=== PATIENT | male | born 1975 | race Caucasian/White ===

== ENCOUNTER 2025-04-08 12:57 | Inpatient (IN) | payer OTHER ==
[~2025-04-08] VITALS: Ht 170.2 cm; Wt 99.7 kg
--- NOTE | 2025-04-08 13:50 | Physician Documentation ---
History of Present Illness ~ Chief Complaint: Bloody Stools Stated Complaint: BLOOD IN STOOL Time Seen by MD: 17:09 HPI 49-year-old male heavy drinker presents to the emergency department with a complaint of four episodes of dark bloody stool. Has been under a lot of stress due to situation with family crisis. Has had polyps in the past. Occasionally has epigastric discomfort. Medication Reconciliation Allergies: Coded Allergies: ibuprofen (Verified Allergy, Severe, VOMITTING, 04/08/25) Scheduled [Testoterone], 0.5 MG IV 2XWEEK, (Reported) Physical Exam Vital Signs: Temperature: 97.3, Source: Oral, Heart Rate: 118, Respiratory Rate: 18, BP: 152/84, Pulse Oximetry: 97, Weight: 99.700 Oxygen Flow Rate: 0 Progress Results/Orders Results/Orders Completed Orders - ДМИТРИЙ BAINS PAC CMP (04/08/25 13:10) Pantoprazole 40mg Iv (Protonix 40mg Iv) (04/08/25 14:37) Vital Signs 04/08/25 04/08/25 04/08/25 13:05 14:43 16:08 Temp 97.3 Pulse 118 91 Resp 18 12 20 B/P (MAP) 152/84 152/105 (121) Pulse Ox 97 O2 Flow Rate 0 Laboratory Tests Test 04/08/25 13:57 04/08/25 15:20 White Blood Count 10.0 10.8 Red Blood Count 6.11 H 5.54 Hemoglobin 18.3 *H 16.8 Hematocrit 52.1 H 48.0 Mean Corpuscular Volume 85.4 86.7 Mean Corpuscular Hemoglobin 30.0 30.3 Mean Corpuscular Hemoglobin Concent 35.1 35.0 Red Cell Distribution Width 13.7 13.7 Platelet Count 311 287 Mean Platelet Volume 7.3 L 7.3 L Neutrophils (%) (Auto) 65.7 Lymphocytes (%) (Auto) 26.3 Monocytes (%) (Auto) 7.1 Eosinophils (%) (Auto) 0.5 Basophils (%) (Auto) 0.4 Neutrophils # (Auto) 6.6 Lymphocytes # (Auto) 2.6 Monocytes # (Auto) 0.7 Eosinophils # (Auto) 0.0 Basophils # (Auto) 0.0 CBC Comment Prothrombin Time 10.7 INR International Normalized Ratio 1.0 Activated Partial Thromboplast Time 27 Coagulation Comments Sodium Level 138 Potassium Level 4.0 Chloride Level 104 Carbon Dioxide Level 26.5 Anion Gap 8 Blood Urea Nitrogen 9 Creatinine 1.33 H Estimated GFR/1.73 m2 58 BUN/Creatinine Ratio 6.8 L Glucose Level 117 H Calcium Level 8.4 L Total Bilirubin 1.9 H Aspartate Amino Transf (AST/SGOT) 25 Alanine Aminotransferase (ALT/SGPT) 26 Alkaline Phosphatase 78 Total Protein 7.1 Albumin 3.6 Globulin 3.5 Albumin/Globulin Ratio 1.0 L Chemistry Comments Hematology Comments Total Creatine Kinase 332 H Troponin I High Sensitivity 4 Pro-B-Type Natriuretic Peptide < 30 Lipase 36 Ethyl Alcohol Level < 10 Medical Decision Making Additional information obtaine: family Findings Medical screening exam completed in triage. Patient normotensive and pending laboratory review. He is mildly tachycardic. He awaits direct bed in the main emergency department for comprehensive workup. Diff Dx GI Bleed:Consideration: Include: Blood loss anemia, Carcinoma, Diverticulosis, Diverticulitis, Esophageal varicies, Esophagitis, Gastritis, Gastroenteritis, Inflammatory BD, Meckel's diverticulum Departure Impression: Primary Impression: Hematochezia Additional Impressions: GI bleed ANDER (acute kidney injury) Syncope Ground-level fall Closed head injury Concussion Condition: Guarded Referrals: NO PRIMARY CARE PROVIDER (PCP) Additional Comment Seen with PA/LEATHER STAMPER Date: Apr 08, 2025 Time: 17:10 This is an attending supervisory note for the resident of record. I have personally participated in care of this patient, has been present during critical and/or sousa portions of the patient's service, participated in the evaluation, and provided major portion of medical decision-making, independently interpreted imaging and laboratory studies and participated in disposition of this patient. This is a 49-year-old male who was seen in conjunction with the residents as above. 49-year-old male presented for evaluation of bloody stools starting today. No obvious trigger, trauma provocation. The stools are painless. He reports large quantity of bloody stools. Not accompanied by chest pain or difficulty breathing. He is a fairly heavy drinker and drinks at least 2 tall glasses of whiskey a day. She had a colonoscopy five years ago and was found to have a polyp. No follow- up. I was called to the bedside immediately because the patient got up, and experienced a syncopal event. He was pale, diaphoretic, he collapsed to the ground striking his head. He vomited and experienced a very large bloody bowel movement. It is grossly evident hematochezia. The patient eventually regained consciousness. He confirms the story as above. GENERAL: Awake, alert, oriented, GCS 15, no apparent distress, non-toxic appearing, answers questions, follows commands appropriately. HEENT: Atraumatic, normocephalic, pupils equal, extraocular muscles intact, sclerae anicteric, mucus membranes moist, oropharynx is clear, no stridor. NECK: supple, full active range of motion, trachea midline, no thyromegaly, no lymphadenopathy, no JVD. CARDIOVASCULAR: Tachycardic and regular rate/rhythm, no murmurs/gallops/rubs, Pulses are 2+ in all extremities and symmetric. Capillary refill less than 2 seconds. PULMONARY: Nonlabored, good air movement ,no respiratory distress, speaking in full sentences, clear to auscultation bilaterally, no wheezing, no ronchi, no rales, no accessory muscle use. GASTROINTESTINAL: Soft, non-tender, non-distended, normal active bowel sounds, no organomegaly, no pulsatile masses, no CVA tenderness. NEUROLOGIC: Lucid with normal mental status. Normal facial symmetry. Moves all extremities symmetrically and with purpose. No truncal ataxia. Speech is fluid without evidence of dysarthria or aphasia, no focal deficits appreciated. MUSCULOSKELETAL: There is full range of motion of all extremities. There is no joint pain or joint swelling or joint erythema. There is no muscle pain or tenderness or swelling. EXTREMITIES: warm, well-perfused, no cyanosis, no clubbing, no edema, no acute deformities. Skin: warm, dry, no rashes or lesions, no jaundice, no petechiae orpurpura. No ecchymosis. PSYCHIATRIC: Normal affect, normal insight, normal concentration. Focused exam: [No guarding or rebound. Rectal exam is completely on necessary given obvious hematochezia.] Hemodynamics reviewed. The patient is not febrile, tachycardic, responded well to fluids. No evidence of hypotension and narrow pulse pressure. It is important to note however, that his pulse pressure is narrowing in general but still remains about 30. Laboratory studies showed hemo concentration of 18.3, on repeat H and H is 16.8. No leukocytosis. Normal platelets. Coagulation panel was unremarkable. Chemistry shows ANDER. CK isn't significantly elevated. Lipase is normal. Troponins negative failure BNP is negative. Ethanol is negative. CT head was obtained because of the trauma and shows no acute intracranial abnormality. A CT of the abdomen and pelvis was obtained showing no acute findings. Diverticulosis without diverticulitis. Incidental finding of 2 cm right lung nodule. The patient will require admission to internal medicine service. Case was discussed with Dr. Bee. Signature Scribe Signature: No scribe Attestation: Date: Apr 08, 2025 Time: 17:15 This note accurately reflects clinical decisions, work performed by myself, DO NARA Piña THOMAS C PAC Apr 08, 2025 13:50 JEFF DESAI DO Apr 08, 2025 17:15
[2025-04-08 14:16] LABS: MEAN PLATELET VOLUME 7.3 FL (7.4-10.4); RED CELL DISTRIBUTION WIDTH 13.7 % (11.5-14.5)
[2025-04-08 14:27] LABS: CREATININE 1.33 MG/DL (0.60-1.10); TOTAL CARBON DIOXIDE 26.5 MMOL/L (24-32); eCRCL 64 ML/MIN; eGFR 58 ML/MIN
--- NOTE | 2025-04-08 14:40 | Physician Documentation ---
History of Present Illness CC: JEFF DESAI DO ~ Chief Complaint: Bloody Stools Stated Complaint: BLOOD IN STOOL Time Seen by MD: 14:40 OK to notify your PCP?: Yes Primary Medical Doctor: No Source: patient, family HPI 49-year-old male with past medical history of colonic polyp and without much established medical history presented to the ER with a chief complaints of bright red color stool for the past 1 day, 3 episodes so far. He reported that he is getting bright red color stool for the past 1 day and showed me the 2 pictures of bright red color stool. He is complaining of the abdominal discomfort over the epigastric region and is getting more aggravated while trying to poop. He endorses loss of appetite for the past few weeks. He denied nausea, vomiting, hematemesis, melena, heartburn, indigestion, nausea, dyspepsia, acid reflux, diarrhea, fever, rash, itching, bladder and bowel irregularities, sleep disturbances. He is not on any blood thinner and he does not have any bleeding disorder. He has not established with a PCP and he does not have any crm marketing executive however he had a colonoscopy at the age of 37-38 which showed polyp and he never had upper GI endoscopy in the past and he has been traveling all over the country for work without a home. He is drinking the 1-2 drinks of whiskey per day for quite a long time he could not able to tell exactly how long he has been drinking. He denied smoking cigarettes, meth, marijuana. He passed out in the ER after passing a bright red colored stool. Medication Reconciliation Allergies: Coded Allergies: ibuprofen (Verified Allergy, Severe, VOMITTING, 04/08/25) Past Medical History Past Surgical History: orthopedic surgeries Other Past Surgical History: Reconstructive surgery for left forearm with biceps muscle Smoking Status: Never smoker Alcohol Use: Alcoholic Drug Use: none Lives with: Family Lives In: Other Past Social History: He is traveling all over the country for a job. Review of Systems Constitutional: Reports: no symptoms reported Eyes: Reports: no symptoms reported Respiratory: Reports: no symptoms reported Cardiovascular: Reports: no symptoms reported Gastrointestinal: Reports: see HPI, hematochezia, rectal bleeding Genitourinary: Reports: no symptoms reported Male Genitalia: Reports: no symptoms reported Neurological: Reports: no symptoms reported Musculoskeletal: Reports: no symptoms reported Integumentary: Reports: no symptoms reported Allergic/Immunologic: Reports: no symptoms reported Hematologic/Lymphatic: Reports: no symptoms reported Endocrine: Reports: no symptoms reported Psychiatric: Reports: no symptoms reported Physical Exam Vital Signs: Temperature: 97.3, Source: Oral, Heart Rate: 118, Respiratory Rate: 18, BP: 152/84, Pulse Oximetry: 97, Weight: 99.700 Oxygen Flow Rate: 0 Pulse Oximetry Reflects: adequate oxygenation General Appearance: alert, WD/WN, no apparent distress EENT: PERRL/EOMI, normal ENT inspection, TMs normal, moist mucous membranes, pharynx normal Neck: normal inspection, full range of motion, supple, non-tender Respiratory: lungs clear, normal breath sounds, no respiratory distress Chest: no accessory muscle use, chest non-tender Cardiology Exam: normal peripheral pulses, regular rate, rhythm, no edema, no gallop, no JVD, no murmur Peripheral Pulses Peripheral pulses are felt equally on both sides. Gastrointestinal: bowels sounds present, liver enlargement, spleen enlargement, tenderness Gastrointestinal Soft, nondistended, tenderness is present in epigastric region. Hepatosplenomegaly is noted. Hernia: no hernias Rectal: bloody stool Back: normal inspection, no CVA tenderness, no vertebral tenderness Extremities: normal range of motion, non-tender, normal inspection, no edema, no calf tenderness, no cyanosis, normal capillary refill Neurologic: oriented x4, sign maker II-XII nml as tested, memory intact Psychiatric: normal mood/affect Skin: normal color, warm/dry Lymphatic: no adenopathy Progress Results/Orders Results/Orders Orders - JEFF DESAI DO Chest,Single View (04/08/25 15:14) Ct Head (04/08/25 15:43) Hs Troponin I W Calculations (04/08/25 17:14) Completed Orders - JEFF DESAI DO Cbc/Diff (04/08/25 13:08) CK (04/08/25 15:14) Chest,Single View (04/08/25 15:14) PBNP (04/08/25 15:14) Piperacillin/Tazo 4.5gm/100ml (Zosyn 4.5 (04/08/25 15:15) Normal Saline 1000ml (0.9% Sodium Chlori (04/08/25 15:15) Ct Head (04/08/25 15:43) Hs Troponin I W Calculations (04/08/25 15:14) Lipase (04/08/25 15:17) Ethanol (04/08/25 15:20) Medications Received in ER Medications (Trade) Dose Ordered Sig/Edgardo Route PRN Reason Start Time Stop Time Status Last Admin Dose Admin (Protonix 40mg IV) 40 mg ONCE STAT IV 04/08/25 14:37 04/08/25 14:39 DC 04/08/25 15:25 40 MG (Protonix 40mg IV) 40 mg ONCE ONCE IV 04/08/25 14:45 04/08/25 14:46 DC 04/08/25 16:14 40 MG Sodium Chloride 1,000 ml @ 1,000 mls/hr ONCE ONCE IV 04/08/25 15:05 04/08/25 16:04 DC 04/08/25 15:18 1,000 MLS/HR Piperacillin/ Tazobactam/ Dextrose 100 ml @ 100 mls/hr ONCE ONCE IV 04/08/25 15:15 04/08/25 16:14 DC 04/08/25 16:34 100 MLS/HR (0.9% sodium chloride (NS) 1000ml IV soln) 1,000 ml ONCE ONCE IVB 04/08/25 15:15 04/08/25 15:19 DC 04/08/25 15:19 1,000 ML Sodium Chloride 1,000 ml @ 150 mls/hr Q6H40M IV 04/08/25 16:20 04/08/25 16:25 150 MLS/HR Vital Signs 04/08/25 04/08/25 04/08/25 13:05 14:43 16:08 Temp 97.3 Pulse 118 91 Resp 18 12 20 B/P (MAP) 152/84 152/105 (121) Pulse Ox 97 O2 Flow Rate 0 Laboratory Tests Test 04/08/25 13:57 04/08/25 15:20 White Blood Count 10.0 10.8 Red Blood Count 6.11 H 5.54 Hemoglobin 18.3 *H 16.8 Hematocrit 52.1 H 48.0 Mean Corpuscular Volume 85.4 86.7 Mean Corpuscular Hemoglobin 30.0 30.3 Mean Corpuscular Hemoglobin Concent 35.1 35.0 Red Cell Distribution Width 13.7 13.7 Platelet Count 311 287 Mean Platelet Volume 7.3 L 7.3 L Neutrophils (%) (Auto) 65.7 Lymphocytes (%) (Auto) 26.3 Monocytes (%) (Auto) 7.1 Eosinophils (%) (Auto) 0.5 Basophils (%) (Auto) 0.4 Neutrophils # (Auto) 6.6 Lymphocytes # (Auto) 2.6 Monocytes # (Auto) 0.7 Eosinophils # (Auto) 0.0 Basophils # (Auto) 0.0 CBC Comment Prothrombin Time 10.7 INR International Normalized Ratio 1.0 Activated Partial Thromboplast Time 27 Coagulation Comments Sodium Level 138 Potassium Level 4.0 Chloride Level 104 Carbon Dioxide Level 26.5 Anion Gap 8 Blood Urea Nitrogen 9 Creatinine 1.33 H Estimated GFR/1.73 m2 58 BUN/Creatinine Ratio 6.8 L Glucose Level 117 H Calcium Level 8.4 L Total Bilirubin 1.9 H Aspartate Amino Transf (AST/SGOT) 25 Alanine Aminotransferase (ALT/SGPT) 26 Alkaline Phosphatase 78 Total Protein 7.1 Albumin 3.6 Globulin 3.5 Albumin/Globulin Ratio 1.0 L Chemistry Comments Hematology Comments Total Creatine Kinase 332 H Troponin I High Sensitivity 4 Pro-B-Type Natriuretic Peptide < 30 Lipase 36 Ethyl Alcohol Level < 10 Medical Decision Making Additional information obtaine: family Findings GI bleed possibly Acute lower GI bleed than upper GI bleed CBC showed polycythemia with a hemoglobin of 18.3/hematocrit of 52.1 and dropped to 16.8 after 2 hours CMP showed elevated creatinine of 1.33 with BUN to creatinine ratio of 6.8 and serum bilirubin of 1.9 PT, INR, APTT with the normal limit CT abdomen pelvis with and without IV contrast with GI bleeding protocol ordered Ordered Blood grouping and typing and 1 unit of PRBC in view of ongoing bleed Painless lower GI bleed possibly secondary to colon polyp versus angiodysplasia of colon Received 80 mg of IV pantoprazole. Despite of hematochezia, we are still suspicious of upper GI bleed Considering his alcohol use background with epigastric discomfort and tenderness, hepatosplenomegaly signs. The closest differentials we considered is solitary rectal polyp, angiodysplasia of colon, hemorrhoids Received Zosyn We will consult the crm marketing executive/surgeon after CT abdomen and pelvis Alcohol use Elevated bilirubin levels Ordered serum lipase and ethyl alcohol level Polycythemia ANDER Decline in hemoglobin and hematocrit value could be secondary to fluid resuscitation or ongoing GI bleed H&H q.2h Serum creatinine of 1.33 with BUN to creatinine ratio of 6.8 likely suggestive of renal tubular stasis Patient will be on the IV normal saline at the rate of 150 per mL/hour Diff Dx GI Bleed:Consideration: Include: Angiodysplasia, Blood loss anemia, Carcinoma, Diverticulosis, Diverticulitis, Esophageal varicies, Esophagitis, Gastritis, Gastroenteritis, Inflammatory BD, Meckel's diverticulum Departure Disposition: ADMITTED INPATIENT Admitted to Inpatient Unit: to hospitalist Admission Level of Care: PCU with Tele Impression: Primary Impression: GI bleed Additional Impressions: Hematochezia ANDER (acute kidney injury) Alcohol use Condition: Guarded Referrals: NO PRIMARY CARE PROVIDER (PCP) Education Educated: Patient, Family Educated regarding: diagnosis, treatment, prognosis Additional Comment Seen with PA/HEAVY MACHINERY OPERATOR Date: Apr 08, 2025 Time: 17:10 This is an attending supervisory note for the resident of record. I have personally participated in care of this patient, has been present during critical and/or sousa portions of the patient's service, participated in the evaluation, and provided major portion of medical decision-making, independently interpreted imaging and laboratory studies and participated in disposition of this patient. This is a 49-year-old male who was seen in conjunction with the residents as above. 49-year-old male presented for evaluation of bloody stools starting today. No obvious trigger, trauma provocation. The stools are painless. He reports large quantity of bloody stools. Not accompanied by chest pain or difficulty breathing. He is a fairly heavy drinker and drinks at least 2 tall glasses of whiskey a day. She had a colonoscopy five years ago and was found to have a polyp. No follow- up. I was called to the bedside immediately because the patient got up, and experienced a syncopal event. He was pale, diaphoretic, he collapsed to the ground striking his head. He vomited and experienced a very large bloody bowel movement. It is grossly evident hematochezia. The patient eventually regained consciousness. He confirms the story as above. GENERAL: Awake, alert, oriented, GCS 15, no apparent distress, non-toxic appearing, answers questions, follows commands appropriately. HEENT: Atraumatic, normocephalic, pupils equal, extraocular muscles intact, sclerae anicteric, mucus membranes moist, oropharynx is clear, no stridor. NECK: supple, full active range of motion, trachea midline, no thyromegaly, no lymphadenopathy, no JVD. CARDIOVASCULAR: Tachycardic and regular rate/rhythm, no murmurs/gallops/rubs, Pulses are 2+ in all extremities and symmetric. Capillary refill less than 2 seconds. PULMONARY: Nonlabored, good air movement ,no respiratory distress, speaking in full sentences, clear to auscultation bilaterally, no wheezing, no ronchi, no rales, no accessory muscle use. GASTROINTESTINAL: Soft, non-tender, non-distended, normal active bowel sounds, no organomegaly, no pulsatile masses, no CVA tenderness. NEUROLOGIC: Lucid with normal mental status. Normal facial symmetry. Moves all extremities symmetrically and with purpose. No truncal ataxia. Speech is fluid without evidence of dysarthria or aphasia, no focal deficits appreciated. MUSCULOSKELETAL: There is full range of motion of all extremities. There is no joint pain or joint swelling or joint erythema. There is no muscle pain or tenderness or swelling. EXTREMITIES: warm, well-perfused, no cyanosis, no clubbing, no edema, no acute deformities. Skin: warm, dry, no rashes or lesions, no jaundice, no petechiae orpurpura. No ecchymosis. PSYCHIATRIC: Normal affect, normal insight, normal concentration. Focused exam: [No guarding or rebound. Rectal exam is completely on necessary given obvious hematochezia.] Hemodynamics reviewed. The patient is not febrile, tachycardic, responded well to fluids. No evidence of hypotension and narrow pulse pressure. It is important to note however, that his pulse pressure is narrowing in general but still remains about 30. Laboratory studies showed hemo concentration of 18.3, on repeat H and H is 16.8. No leukocytosis. Normal platelets. Coagulation panel was unremarkable. Chemistry shows ANDER. CK isn't significantly elevated. Lipase is normal. Troponins negative failure BNP is negative. Ethanol is negative. CT head was obtained because of the trauma and shows no acute intracranial abnormality. A CT of the abdomen and pelvis was obtained showing no acute findings. Diverticulosis without diverticulitis. Incidental finding of 2 cm right lung nodule. The patient will require admission to internal medicine service. Case was discussed with Dr. Bee. Signature Scribe Signature: The note accurately reflects work and decisions made by me.Erasmo English - Resident 04/08/25 16:19 Attestation: The note accurately reflects work and decisions made by me.Erasmo English - Resident 04/08/25 16:19 ERASMO ENGLISH, RES Apr 08, 2025 14:40 JEFF DESAI DO Apr 08, 2025 17:17
[2025-04-08 15:04] LABS: INR 1.0 INR
[2025-04-08] MEDS ORDERED: iohexol 300mg/ml 100ml inj. ONE (15:13)
[2025-04-08] MEDS: normal saline 1000ml 1,000 ML IV ONE (15:18)
[2025-04-08] MEDS: normal saline 1000ML IV soln IVB ONE (15:19)
[2025-04-08 15:26] LABS: APTT 27 SECONDS (22-32)
--- NOTE | 2025-04-08 15:26 | ELECTROCARDIOGRAPH REPORT ---
[facility] Test Date: 2025-04-08 Test Time: 15:23:08 Pat Name: SRINIVASAN IRIZARRY Department: [facility]- Patient ID: [id number] Room: [facility]TH[facility] Gender: M Sales Data Analyst: : 1975 Requested By: TIA ENGLISH Order Number: [id number] Reading MD: Dr. NINO Paul Measurements Intervals [place] Rate: 86 P: 75 TN: 139 QRS: 74 QRSD: 97 T: 62 QT: 373 QTc: 446 Interpretive Statements Sinus rhythm ST elev, probable normal early repol pattern Electronically Signed On 04-09-2025 16:52:[address] NINO Paul Please click the below link to view image of tracing.
[2025-04-08 15:41] LABS: MEAN PLATELET VOLUME 7.3 FL (7.4-10.4); RED CELL DISTRIBUTION WIDTH 13.7 % (11.5-14.5)
--- NOTE | 2025-04-08 15:59 | RADIOLOGY REPORT ---
EXAM: CT CT HEAD INDICATION: fall with headstrike TECHNIQUE: CT images of the head were obtained without administration of IV contrast. CT scans at this facility use dose modulation, iterative reconstruction, and/or weight based dosing when appropriate to reduce radiation dose to as low as reasonably achievable. COMPARISON: None FINDINGS: PARENCHYMA: No acute hemorrhage. There is no mass effect, midline shift, or herniation. There is preservation of the alex white differentiation. VENTRICLES: No hydrocephalus. EXTRA-AXIAL SPACES: No extra-axial fluid collections. OTHER: The bony structures are intact. Visualized portions of the paranasal sinuses and mastoid air cells are clear. IMPRESSION: 1. No CT evidence of an acute intracranial abnormality.
[2025-04-08 16:04] LABS: ETHANOL < 10 MG/DL (<10); PRO BRAIN NATRIURETIC PEPTIDE < 30 PG/ML (0-125)
--- NOTE | 2025-04-08 16:19 | RADIOLOGY REPORT ---
Exam: CT CT ABDOMEN PELVIS W/WO IV CONTRAST History: GI BLEED,HEMATOCHEZIA COMPARISON: None Technique: Multidetector spiral CT of the abdomen and pelvis was performed from lung bases to pubic symphysis. Intravenous contrast was administered during this examination. Portal venous imaging was obtained. Axial, coronal and sagittal multiplanar reformats were performed by the technologist on a separate workstation. Radiation Dose : 1. Abdomen/Pelvis: CTDIvol 22.9 cm mGy, DLP 1223.87 mGy*cm. CONTRAST: Type of contrast: Omnipaque 300 Contrast injected: 100 ml Findings: Lung Bases: Circumscribed right lower lobe pulmonary nodule measuring 2.2 cm. Liver: The liver is normal in size. No focal lesions. Normal hepatic vascular enhancement. Gallbladder and Biliary Tree: Unremarkable Spleen: Unremarkable Pancreas: The pancreas is normal in appearance without focal lesions or abnormal enhancement. Adrenal Glands: Unremarkable Kidneys: No hydronephrosis. Bladder: Unremarkable Bowel: No active extravasation of contrast into the GI tract. No significant bowel wall thickening. Colonic diverticulosis without acute diverticulitis. Ascites: Absent Lymphadenopathy: No mesenteric, retroperitoneal or periportal lymphadenopathy. Abdominal Wall and Mesentery: Unremarkable. Vasculature: The visualized abdominal aorta is normal in size and caliber. Abdominal and pelvic vessels demonstrate normal enhancement. Pelvic Organs: Unremarkable Musculoskeletal: No aggressive focal bony lesions, acute fractures or dislocation. IMPRESSION: No acute abdominal or pelvic finding. Colonic diverticulosis without acute diverticulitis. Benign-appearing rounded right lower lobe pulmonary nodule measuring 2.2 cm. Given the size suggest a short-term follow-up CT in 3 months for reassessment. Radiation optimization: All CT scans at this facility use at least one of these dose optimization techniques: automated exposure control mA and/or kV adjustment per patient size (includes targeted exams where dose is matched to clinical indication) or iterative reconstruction.
[2025-04-08] MEDS: normal saline 1000ml 1,000 ML IV SCH (16:25)
[2025-04-08] MEDS: piperacillin/tazo 4.5gm/100ml 100 ML IV ONE (16:34)
[2025-04-08] MEDS ORDERED: magnesium sulf-water 2g/50mL 50 ML IV PRN (16:55)
[2025-04-08] MEDS ORDERED: magnesium sulf-water 4G/100mL 100 ML IV PRN (16:55)
[2025-04-08] MEDS ORDERED: mag hydrox/Alum hydrox/simeth 30ml oral suspension PO PRN (16:55)
[2025-04-08] MEDS ORDERED: magnesium hydroxide 30ml (MOM) UD suspension PO PRN (16:55)
[2025-04-08] MEDS ORDERED: ondansetron/PF 4mg/2ml inj IV PRN (16:55)
[2025-04-08] MEDS ORDERED: potassium Cl 20 mEq SR tablet PO PRN ×2 (16:55)
[2025-04-08] MEDS ORDERED: potassium Cl 40MEQ/1/2NS 520ml 520 ML IV PRN (16:55)
--- NOTE | 2025-04-08 16:59 | RADIOLOGY REPORT ---
CHEST RADIOGRAPH Indication: syncope Technique: Single frontal view of the chest was obtained. Comparison: None Findings: No focal consolidation. No significant pleural effusion. No pneumothorax. Nonenlarged cardiomediastinal silhouette. IMPRESSION: No acute pulmonary process.
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
[2025-04-08] MEDS: PEG 3350/Na sulf,bicarb,Cl/KCl oral sol 4 liter bottle PO ONE (18:22)
[2025-04-08] MEDS ORDERED: [UNRECOGNIZED DRUG - OTHER] IV (18:58)
[2025-04-08] MEDS: docusate sod 100mg capsule PO SCH (19:56)
[2025-04-08] MEDS: K and/or MAG REPLACEMENT MC SCH (19:57)
[2025-04-08] MEDS: pantoprazole 40MG/NS 100ML BAG 100 ML IV SCH (20:01)
[2025-04-08] MEDS ORDERED: PEG 3350/Na sulf,bicarb,Cl/KCl oral sol 4 liter bottle PO ONE (20:05)
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
[2025-04-08 22:19] VITALS: BP 140/74; PULSE 100; RESP 24; TEMP 98; O2SAT 99
[2025-04-08 23:30] VITALS: PULSE 85; RESP 16; O2SAT 99
[2025-04-09] VITALS (11 sets, daily range): BP systolic 118–152; BP diastolic 50–90; PULSE 70–90; RESP 14–22; TEMP 97.8–99.1; O2SAT 95–99
[2025-04-09 06:38] LABS: MEAN PLATELET VOLUME 7.6 FL (7.4-10.4); RED CELL DISTRIBUTION WIDTH 13.7 % (11.5-14.5)
[2025-04-09 06:51] LABS: CREATININE 1.07 MG/DL (0.60-1.10); TOTAL CARBON DIOXIDE 27.2 MMOL/L (24-32); eCRCL 80 ML/MIN; eGFR 74 ML/MIN
[2025-04-09] MEDS ORDERED: propofol inj 20 ML IV ONE ×2 (14:21)
--- NOTE | 2025-04-09 19:12 | DISCHARGE SUMMARY ---
Discharge Summary Providers to CC ~ Discharge Summary Admission Diagnosis: Hematochezia/ kamila lower GI bleed/syncope Hospital Course DATE OF ADMISSION: 04/08/2025 DATE OF DISCHARGE: 04/09/2025 Discharge Diagnosis\Comment: Lower GI bleed, kamila syncope, 2.2 cm pulmonary nodule, kidney disease possible ANDER Operations\Procedures: Colonoscopy with biopsy Consultants: Dr. José accredited legal secretary Complications: none Condition on DC: Stable Continued Medications: [Testoterone] () 0.5 MG IV 2XWEEK Discharge Summary: I admitted the patient with the following HPI:This is a 49-year-old male who developed significant bright red bloody bowel movements x3 starting today. The ED provider saw pictures of bright red colored stool. The patient has a colonoscopy approximately 10 years ago and had a polyp biopsied. The patient does drink two strong mixed drinks several times a week however has not had any issues with withdrawal symptoms when not drinking alcohol. In the ED the patient attempted to stand up and ambulate and he passed out. The patient is on b.i.d. Protonix, I spoke with accredited legal secretary who recommended starting a bowel prep- lightly is ordered and the patient will have clear liquids until midnight and NPO after midnight for colonoscopy tomorrow. The patient went for a colonoscopy on the and there was three colonic polyps discovered that were biopsied. The patient's hemoglobin did drop from 18.3-14.2 The patient also had kidney disease on admission with a creatinine of 1.33 this did improve to 1.07 however does not meet the criteria for ANDER. The patient stood up for me and ambulated around the room without any signs of dizziness or loss of balance. The patient is adamant that he was going to leave regardless and the patient was stable and had a colonoscopy thus it was reasonable to discharge the patient home. Gen. No acute distress alert and oriented 4 Lungs clear to ascultation bilaterally, no wheezes rales or rhonchi appreciated Heart normal sinus rhythm no murmurs rubs or clicks noted Abdomen soft nontender bowel sounds are normoactive Lower extremities no clubbing cyanosis, nor edema appreciated bilaterally The patient felt ready to be discharged and was medically cleared to be discharged on 04/09/2025 The patient was seen and evaluated on day of discharge. Time spent on discharge 35 minutes The patient recovered sooner than to be expected with syncope and lower GI bleed. *Problems/Diagnosis: (1) GI bleed Status: Acute Total Time Spent on D/C: > 30 Minutes Date of Service: Apr 09, 2025 Billing Provider: LORIN VELARDE DO Common Visit Codes: 63571-LCS/OBS DISCH DAY >30min LORIN VELARDE DO Apr 09, 2025 19:12
== END 2025-04-09 16:30 | disposition home or self-care (01) | DRG 378 ==
LOC: ER 12:58 → ED HOLD 17:00 → ORTHO 4S 22:00
PROVIDERS: ADMIT Family Medicine; ATTEND Family Medicine
PROC: 0DBN8ZZ Excision of Sigmoid Colon, Via Natural or Artificial Opening Endoscopic (ICD-10-PCS; 2025-04-09)
PROC: 0DBP8ZZ Excision of Rectum, Via Natural or Artificial Opening Endoscopic (ICD-10-PCS; 2025-04-09)
PROC: 0DBM8ZZ Excision of Descending Colon, Via Natural or Artificial Opening Endoscopic (ICD-10-PCS; principal; 2025-04-09 13:54)
DX: K57.31 Diverticulosis of large intestine without perforation or abscess with bleeding (principal); N17.9 Acute kidney failure, unspecified; D12.4 Benign neoplasm of descending colon; D12.5 Benign neoplasm of sigmoid colon; D12.8 Benign neoplasm of rectum; S06.0X0A Concussion without loss of consciousness, initial encounter; W18.39XA Other fall on same level, initial encounter; R91.1 Solitary pulmonary nodule; Y93.89 Activity, other specified; Y92.89 Other specified places as the place of occurrence of the external cause; Y99.8 Other external cause status; Z88.6 Allergy status to analgesic agent; Z90.49 Acquired absence of other specified parts of digestive tract
CPT/HCPCS: 36415; 45385; 70450; 71045; 74178; 80053; 80320; 82550; 83690; 83735; 83880; 84484; 85025; 85027; 85610; 85730; 86885; 86900; 86901; 86920; 87081; 93005; 96365; 96375; 99285; A4620; G0378; J2470; J2543; J2704; J7030; J7120; Q9967